=== PATIENT | female | born 1970 | race Caucasian/White ===

== ENCOUNTER 2017-02-14 23:48 | Emergency (ER) | payer MEDICARE, OTHER ==
[2017-02-15 02:29] VITALS: BP 109/63
== END 2017-02-15 02:29 | disposition home or self-care (01) ==
LOC: ED 23:48
DX: N75.1 Abscess of Bartholin's gland (principal); F32.9 Major depressive disorder, single episode, unspecified; I10 Essential (primary) hypertension; G89.29 Other chronic pain
CPT/HCPCS: J2001

== ENCOUNTER 2017-02-16 20:28 | Emergency (ER) | payer MEDICARE, OTHER ==
[2017-02-17 00:19] VITALS: BP 135/72
== END 2017-02-17 00:19 | disposition home or self-care (01) ==
LOC: ED 20:28
DX: Z48.00 Encounter for change or removal of nonsurgical wound dressing (principal)

== ENCOUNTER 2017-11-17 02:18 | Emergency (ER) | payer MEDICARE, OTHER ==
[~2017-11-17] VITALS: Ht 162.6 cm; Wt 79.2 kg
[2017-11-17 02:30] VITALS: BP 110/66; Ht 162.6 cm; Wt 79.2 kg
== END 2017-11-17 05:52 | disposition left against medical advice (07) ==
LOC: ED 02:18
DX: Z53.21 Procedure and treatment not carried out due to patient leaving prior to being seen by health care provider (principal)

== ENCOUNTER 2017-12-04 13:57 | Emergency (ER) | payer MEDICARE, OTHER ==
[~2017-12-04] VITALS: Ht 165.1 cm; Wt 79.4 kg
[2017-12-04 14:03] VITALS: BP 120/9; Ht 165.1 cm; Wt 79.4 kg
[2017-12-04 15:22] LABS: UA SPECIFIC GRAVITY 1.015 (1.005-1.035); microscopic required? YES; urine erythrocyte TRACE (NEGATIVE)
== END 2017-12-04 15:14 | disposition home or self-care (01) ==
LOC: ED 13:57
PROVIDERS: Emergency Medicine
DX: N91.2 Amenorrhea, unspecified (principal); I10 Essential (primary) hypertension; K21.9 Gastro-esophageal reflux disease without esophagitis; G89.29 Other chronic pain; M54.9 Dorsalgia, unspecified; M25.569 Pain in unspecified knee; F17.210 Nicotine dependence, cigarettes, uncomplicated; F32.9 Major depressive disorder, single episode, unspecified; F20.9 Schizophrenia, unspecified; Z71.6 Tobacco abuse counseling; Z98.890 Other specified postprocedural states
CPT/HCPCS: 99406

== ENCOUNTER 2017-12-24 13:26 | Emergency (ER) | payer MEDICARE, OTHER ==
[~2017-12-24] VITALS: Ht 165.1 cm; Wt 78.5 kg
[2017-12-24 13:37] VITALS: Ht 165.1 cm; Wt 78.5 kg
[2017-12-24 14:22] LABS: microscopic required? NO
[2017-12-24 14:43] LABS: UA SPECIFIC GRAVITY 1.015 (1.005-1.035); urine erythrocyte NEGATIVE (NEGATIVE)
[2017-12-24 15:31] VITALS: BP 125/68
== END 2017-12-24 17:12 | disposition home or self-care (01) ==
LOC: ED 13:26
PROVIDERS: Emergency Medicine
DX: M25.562 Pain in left knee (principal); F32.9 Major depressive disorder, single episode, unspecified; I10 Essential (primary) hypertension; G89.29 Other chronic pain; M54.9 Dorsalgia, unspecified; K21.9 Gastro-esophageal reflux disease without esophagitis; F17.210 Nicotine dependence, cigarettes, uncomplicated; Z71.6 Tobacco abuse counseling
CPT/HCPCS: 99406

== ENCOUNTER 2018-04-21 15:08 | Emergency (ER) | payer MEDICARE, OTHER ==
[~2018-04-21] VITALS: Ht 165.1 cm; Wt 80.7 kg
[2018-04-21 17:38] VITALS: BP 125/65
== END 2018-04-21 17:39 | disposition home or self-care (01) ==
LOC: ED 15:08
DX: M75.102 Unspecified rotator cuff tear or rupture of left shoulder, not specified as traumatic (principal); I10 Essential (primary) hypertension; K21.9 Gastro-esophageal reflux disease without esophagitis

== ENCOUNTER 2018-05-21 18:12 | Emergency (ER) | payer MEDICARE, OTHER ==
[~2018-05-21] VITALS: Ht 165.1 cm; Wt 83.0 kg
[2018-05-21 19:23] VITALS: BP 121/84
== END 2018-05-21 19:18 | disposition home or self-care (01) ==
LOC: ED 18:12
DX: K12.0 Recurrent oral aphthae (principal); H60.502 Unspecified acute noninfective otitis externa, left ear; I10 Essential (primary) hypertension; K21.9 Gastro-esophageal reflux disease without esophagitis

== ENCOUNTER 2018-08-19 17:40 | Emergency (ER) | payer OTHER ==
[~2018-08-19] VITALS: Ht 167.6 cm; Wt 81.2 kg
[2018-08-19 17:50] VITALS: Ht 167.6 cm; Wt 81.2 kg
[2018-08-19 20:16] VITALS: BP 117/78
== END 2018-08-19 21:08 | disposition home or self-care (01) ==
LOC: ED 17:40
DX: B37.3 Candidiasis of vulva and vagina (principal); G89.29 Other chronic pain; F32.9 Major depressive disorder, single episode, unspecified; K21.9 Gastro-esophageal reflux disease without esophagitis

== ENCOUNTER 2019-01-31 22:23 | Emergency (ER) | payer OTHER | END 2019-01-31 23:06 | disposition other institution (70) | LOC: ED 22:23 | DX: Z02.89 Encounter for other administrative examinations (principal) ==

== ENCOUNTER 2019-01-31 22:23 | Emergency (ER) | payer OTHER ==
[~2019-01-31] VITALS: Ht 165.1 cm; Wt 79.4 kg
[2019-01-31 22:27] VITALS: Ht 165.1 cm; Wt 79.4 kg
[2019-01-31 23:06] VITALS: BP 111/81
== END 2019-01-31 23:06 | disposition other institution (70) ==
LOC: ED 22:23
DX: J06.9 Acute upper respiratory infection, unspecified (principal)